=== PATIENT | male | born 1990 | race Caucasian/White ===

== ENCOUNTER 2016-06-09 09:58 | Observation (INO) | payer OTHER ==
[~2016-06-09] VITALS: Ht 172.7 cm; Wt 170.1 kg
--- NOTE | 2016-06-09 10:07 | ED GENERAL ADULT ---
History of Present Illness General Chief Complaint: General Adult Stated Complaint: "HERE FOR GALLBLADDER REMOVAL" Source: patient Exam Limitations: no limitations Vital Signs & Intake/Output Vital Signs & Intake/Output Vital Signs Date Time Temp Pulse Resp B/P Pulse O2 O2 Flow FiO2 Ox Delivery Rate 06/09 1006 98.5 89 18 135/80 98 Room Air Allergies Coded Allergies: No Known Allergies (06/09/16) Reconcile Medications Paroxetine HCl 30 MG TABLET 1 TAB PO DAILY DEPRESION (Reported) Triage Note: 26 YO MALE TO ER FOR GALLBLADDER REMOVAL. PT WAS DUE TO HAVE GALLBLADDER OUT ON WEDNESDAY BU , STATES THE PAIN WAS WORSE TODAY SO HE WENT SENT IN FOR SURGERY. 12/24 PAIN. +NAUSEA Triage Nurses Notes Reviewed? yes Onset: Gradual Duration: worse persistent since (2 days) Timing: recent history Injury Environment: home Severity: severe Severity Numbers: 8 No Modifying Factors: none HPI: Patient is a 26-year-old female with history of obesity, epigastric and right upper quadrant pain is bothering him over the past 6 years worse over the past several months. He recently saw a new surgeon who recommended he get a HIDA scan. This showed severe dysfunction of the gallbladder. He was scheduled to have his colon removed in 2 days but the pain became worse over the past 2 days. Positive nausea and dry heaving with one episode of bilious vomiting yesterday. Denies any fevers or chills. No diarrhea. He spoke with his surgeon who sent him to the ER for evaluation and cholecystectomy. Patient denying taking anything for pain prior to arrival. Pain currently 8 out of 10. He reports that the pain is in the right upper quadrant and radiates to the back. Denies any chest pain palpitations or shortness of breath. Palpation makes the pain worse nothing seems to make it better. (MARYLIN MORA) Past History Travel History Traveled to [place] past 21 day No Medical History Any Pertinent Medical History? see below for history Surgical History Surgical History: non-contributory Family History Hx Contributory? No (MARYLIN MORA) Review of Systems Review of Systems Constitutional: Reports: no symptoms. Comments Review of systems: See HPI, All other systems negative. Constitutional, no chills fever or weight loss HEENT: No visual changes no sore throat no congestion Cardiovascular: No chest pain ,palpitation Skin, no jaundice no rashes Respiratory: No dyspnea cough sputum or hemoptysis GI: no vomiting : No dysuria No hematuria Muscle skeletal: no back pain, no neck pain, Neurologic: No numbness no confusion no [place] Psych: No stress anxiety Immunology: No splenectomy or history of AIDS (MARYLIN MORA) Physical Exam Physical Exam General Appearance: no apparent distress, alert, awake, obese Comments: Obese person in no acute distress HEENT:Pupils equally round and reactive to light and accommodation. Nose is atraumatic. Neck: Normal inspection Back: Nontender, no CVA tenderness. Full range of motion Cardiovascular: Regular rate and rhythms no murmurs rubs or gallops, normal JVP Respiratory: Chest nontender. No respiratory distress.breath sounds clear to auscultation bilaterally Abdomen: Soft, obese, tender to palpation in the epigastric region, mild guarding, no rebound tenderness, nondistended, no appreciable organomegaly. Normal bowel sounds. No ascites. Reducible umbilical hernia approximately 2 cm in diameter. Extremity: No edema Neuro: Alert oriented x3 Skin: No appreciable rash on exposed skin, skin is warm and dry. Psych: Mood and affect is normal, memory and judgment is normal. Core Measures ACS in differential dx? No CVA/TIA Diagnosis: No Severe Sepsis Present: No Septic Shock Present: No (MARYLIN MORA) Progress Differential Diagnoses I considered the following diagnoses in my evaluation of the patient: Acute cholecystitis, gastritis, diverticulitis, hiatal hernia, pancreatitis Plan of Care: Orders Procedure Date/time Status EKG 06/09 1205 Active Initial ED EKG: none Comments: 06/09/2016 10:23:18 AM arrival patient is afebrile. Patient does have reproducible pain in the epigastric and right upper quadrant. According to surgeon Dr. Guo, labs are not necessary. IV fluids, IV pain medication and nausea medication administered. Patient will go to the OR around 12:30 for cholecystectomy. 06/09/2016 10:56:12 AM spoke with the surgical physician assistant case manager, she will be down to evaluate the patient prior to going to the operating room. 06/09/2016 11:18:55 AM patient resting comfortably. Patient will go to the OR within the next hour or so. Discussed with Dr. palmer and he agrees with plan. (MARYLIN MORA) Departure Departure Disposition: STILL A PATIENT Condition: Stable Clinical Impression Primary Impression: Dysfunctional gallbladder Secondary Impressions: Abdominal pain Qualifiers: Abdominal location: right upper quadrant Qualified Code: R10.11 - Right upper quadrant pain Referrals: PATIENT HAS NO PRIMARY CARE DR (PCP/Family) Departure Forms: Customer Survey General Discharge Information OR/GI Note Spoke With: MATEUS GUERRERO,MOLINA Cabrera ED Treatment Decision: COLE ANDREW requires urgent operative management or an emergent procedure that cannot be performed in the Emergency Room setting. Transport To: [facility] (MARYLIN MORA) PA/TRACK REPAIRER HELPER Co-Sign Statement Statement: ED Attending supervision documentation- [] I saw and evaluated the patient. I have also reviewed all the pertinent lab results and diagnostic results. I agree with the findings and the plan of care as documented in the PA's/TRACK REPAIRER HELPER's documentation. x I have reviewed the ED Record and agree with the PA's/TRACK REPAIRER HELPER's documentation. [] Additions or exceptions (if any) to the PAs/TRACK REPAIRER HELPER's note and plan are summarized below: [] (ART GUERRERO,COLE) Critical Care Note Critical Care Note Critical Care Time: non-applicable (MARYLIN MORA)
--- NOTE | 2016-06-09 10:20 | NUR ---
PT TO ER ROOM 4. IV EST. NORMAL SALINE INFUSING PER ORDER AT THIS TIME. PA AT BEDSIDE FOR EVAL.
--- NOTE | 2016-06-09 10:43 | NUR ---
PT MEDICATED WITH MORPHINE AND ZOFRAN PER ORDER AT THIS TIME
[2016-06-09] MEDS ORDERED: PAROXETINE HCL30 M1 PO (11:15)
--- NOTE | 2016-06-09 11:45 | History & Physical Pre-Op ---
General Information and HPI MD Statement: I have seen and personally examined COLE ANDREW and documented this H&P. The patient is a 26 year old M who presented with a patient stated chief complaint of [abdominal pain]. Source of Information: patient Exam Limitations: no limitations History of Present Illness: This 26 year old white male with morbid obesity presents with recurrent biliary colic, for which he was planning an elective laparoscopic cholecystectomy later this week by , but had a severe attack last night bringing him to the ED. He has had some associated nausea, but no vomiting. Denies dizziness. No shortness of breath. No chest pains. Outpatient studies done by 's office currently unavailable for review, but will be brought in by today. Allergies/Medications Allergies: Coded Allergies: No Known Allergies (06/09/16) Home Med list Paroxetine HCl 30 MG TABLET 1 TAB PO DAILY DEPRESION (Reported) Past History Medical History Neurological: NONE EENT: NONE Cardiovascular: NONE Respiratory: NONE Gastrointestinal: NONE Hepatic: NONE Renal: NONE Musculoskeletal: NONE Psychiatric: anxiety Endocrine: obesity Blood Disorders: NONE Cancer(s): NONE BLENDER/BRAZE APPLICATOR/Reproductive: NONE Surgical History Pertinent Surgical History: non-contributory Past Family/Social History Family History Relations & Conditions if any Relation not specified for: FHx: gallstones Psychosocial History Smoking Status: Former Smoker ETOH Use: occasional use Review of Systems Review of Systems: admits: abdominal pain (right upper quadrant), nausea denies: dizziness, shortness of breath, chest pains, dysuria Exam & Diagnostic Data Last 24 Hrs of Vital Signs/I&O Vital Signs Date Time Temp Pulse Resp B/P Pulse O2 O2 Flow FiO2 Ox Delivery Rate 06/09 1006 98.5 89 18 135/80 98 Room Air Intake & Output 06/09 1600 06/09 0800 06/09 0000 Intake Total Output Total Balance Patient 375 lb Weight Physical Exam: General - comfortable. no acute distress. Skin - warm, dry, and smooth. no rashes. Lungs - clear bilaterally. no w/r/r. Cardiac - s1s2. reg. Abdomen - obese. soft. right upper quadrant tenderness appreciated. no umbilical hernia appreciated, but he has umbilical tenderness. no surgical scars visualized. Extremities - warm bilaterally. no c/c/e. calves soft and nontender b/l. Neuro - speech smooth and coordinated. nonfocal. Assessment/Plan Assessment/Plan: This 26 year old white male with hx morbid obesity and gallstones presents with recurrent biliary colic consented for lap mac today by pain medication as needed possibly d/c home today hep sc - dvt ppx if he stays overnight obtain pre-op records from 's office will d/w As Ranked By This Provider Problem List: 1. Abdominal pain
--- NOTE | 2016-06-09 12:22 | NUR ---
PER OP SCURB GIVEN TO PT AND PT VERBZLIED UNDERTSANDING OF SCRUB. EKG IN PROGRESS AT THIS TIME
--- NOTE | 2016-06-09 12:48 | NUR ---
PER OR THEY WILL BE SENDING FOR PT IN APPROX 30-45 MINUTES. PT AWARE. PT REMAINS COMOFRTBLE ON STRETCHER AT THIS TIME.
--- NOTE | 2016-06-09 13:13 | NUR ---
TRANSPORT HERE TO TAKE PT TO OR AT THIS TIME. PT STABLE FOR TRANSPORT TO OR, PRE OP SCURB HAS BEEN COMPLETED.
--- NOTE | 2016-06-09 15:50 | Operative Report ---
Operative/Inv Procedure Report Surgery Date: 06/09/16 Name of Procedure: Laparoscopic cholecystectomy, umbilical hernia repair Pre-Operative Diagnosis: Biliary dyskinesia, umbilical hernia Post-Operative Diagnosis: Same Estimated Blood Loss: less than 50ml Surgeon/Engine Mechanic: George Patel APRN Anesthesia: general endotracheal tube, block IV Fluids: LR Urine Output: n/a Drains: none Specimens: Gallbladder Complications: None Condition: Stable Operative Indication: Patient is a 26-year-old male who has had multiple emergency room admissions including [facility], [facility], was seen in my office with epigastric right upper quadrant pain radiating to his back. Symptoms were consistent with gallbladder disease although his ultrasound and CT scan did not show stones. I sent the patient for HIDA scan which was positive showing only a 19% ejection fraction and cholecystokinin. We are going to plan an elective cholecystectomy although the patient called this morning with increased pain last night and vomiting bilious material with therefore brought him to the emergency room and placed him on the add-on schedule. Given the patient's obesity and BMI 61 he is at somewhat higher risk of complication which we discussed including but not limited to bleeding infection injury to bile ducts or bowel DVT and pulmonary embolus. Patient consented the surgery Operative/Procedure Note Note: After informed consent proper identification the patient was taken to the operating room and placed on the operating room table in supine position Venodyne stockings were applied and underwent a general endotracheal anesthetic the abdomen was prepped and draped in normal sterile fashion after anesthesia placed a tap block the patient also preoperatively was noticed to have a small umbilical hernia. We can produce a small amount of fat just at the level of the umbilicus. He had reported that at times that a protrusion became larger and then gets smaller consistent with a hernia. We anesthetized the area around the umbilicus with Percent Marcaine and with a 15 blade made a infraumbilical incision through the skin and dermis. Using a finger placed in the subcutaneous tissues I could palpate the fat coming through approximately a 1 cm defect just adjacent to the umbilical stalk we opened up a small sac and under direct visualization placed a finger within the abdominal cavity we placed a blunt port cannula into the defect and insufflated with 14 mm CO2 pressure. The cannula was placed directly through the umbilical hernia defect. We had good visualization now. The patient had a very large liver and a very large fatty omentum patient was placed in deep reverse Trendelenburg. We placed additional trochars 5 mm trocar in the upper midline below the xiphoid and 25 mm trochars in the right subcostal margin and a 5 mm trocar in the left subcostal margin in which we used a peanut dissector to retract the omentum the gallbladder was very distended but the wall was thin and blue. We could not retract it without decompressing it we opened it with a cautery and then using a suction metallurgical specialist sucked out clear yellow bile which appeared normal. We grasped the fundus and pushed it up towards the head we could not push it over the liver edge because the liver was too large although with retracting the omentum now we had excellent visualization of the infundibulum. Using a combination of a hook cautery and blunt dissection with a [place] dissector we dissected out the cystic duct and cystic artery which we saw clearly we used a 5 mm clip warehouse forklift operator and placed 3 clips proximally on the duct and 2 clips proximally on the artery and one 5 mm clip distally on each of the duct and artery and divided the duct and artery we then dissected the gallbladder out of the liver bed without difficulty as there was a very nice tissue plane were placed the gallbladder in the Endo Catch bag and pulled it out through the infraumbilical trocar site we replaced the trocar and inspected the abdomen we suction irrigated the right upper quadrant we then removed all trochars there is no active bleeding we closed the umbilical fascial defect with a figure of 8-0 Prolene suture therefore with repairing the umbilical hernia. We closed all the skin incisions with 4-0 Monocryl subcuticular stitches we placed Steri-Strips and dry sterile dressings patient tolerated the procedure without complications Findings: Distended but thin walled gallbladder Large fatty liver Discharge Disposition: PACU
--- NOTE | 2016-06-09 20:22 | PN- General Surgery ---
Subjective Subjective: Post Op Note s/p laparoscopic cholecystectomy pain controlled. no c/o. Patient has been dropping O2 sats to 88-90% O2 on RA and is staying the night for observation. He denies chest pain or shortness of breath. States he is hungry. Objective Vital Signs and I&Os Vital Signs Date Time Temp Pulse Resp B/P Pulse O2 O2 Flow FiO2 Ox Delivery Rate 06/09 1311 98.6 76 18 121/58 98 Room Air 06/09 1006 98.5 89 18 135/80 98 Room Air Intake & Output 06/09 1600 06/09 0800 06/09 0000 06/08 1600 06/08 0800 06/08 0000 Intake Total Output Total Balance Patient 375 lb Weight Physical Exam: Gen: NAD, comfortable, A&Ox3 Chest: CTAB. Tachycardic, regular rhythm Abd: Soft, non distended. Appropriately TTP. Dressings c/d/i Ext: No calve TTP/Swelling. N/V intact BLE. Current Medications: Current Medications Sig/Tasha Start time Last Medication Dose Route Stop Time Status Admin Morphine Sulfate 0 .STK-MED ONE 06/09 1041 DC .ROUTE Morphine Sulfate 4 MG ONCE ONE 06/09 1030 DC 06/09 IV 06/09 1031 1043 Ondansetron HCl 0 .STK-MED ONE 06/09 1041 DC .ROUTE Ondansetron HCl 4 MG ONCE ONE 06/09 1030 DC 06/09 IV 06/09 1031 1043 Paroxetine HCl 30 MG DAILY 06/10 1000 UNVr PO Sodium Chloride 1,000 ML ONCE ONE 06/09 1015 DC 06/09 IV 06/09 1654 1019 Assessment/Plan Assessment/Plan 26yo M POD#0 s/p lap mac with decreased O2 sats and mildly tachycardic. - admit for 23hr obs - pain control - PRN zofran - advance diet as tolerated - IVF until tolerating PO - I/O's - OOB as desired - CPAP - Monitor O2, wean as permitted Core Measures/Miscellaneous Venous Thromboembolism VTE Risk Factors: Age > 40, Obesity, Surgery VTE Contraindications: No Contraindications VTE Prophylaxis Ordered Inpt Mech & Pharm VTE Diagnosis: No Beta Fallon Is Beta Fallon a Home Med? No Antibiotics Is Patient on Antibiotics? No
[2016-06-09 20:44] VITALS: BP 126/72
--- NOTE | 2016-06-09 20:47 | NUR ---
PT ARRIVED AT 2030 FROM PACU VIA WC. A/OX3, SPO2 95, 2L NC, IVF PER ORDER, ALPS PER ORDER, PAIN 6/10 (SEE EMAR), BP 126/72, T 97.9, P 100. 4 ABD BAID AIDS C/D/I, 1 STERI STRIP ABD WITH SCAN AMOUNT OF DRY BLOOD. WILL CONTINUE TO MONITOR
--- NOTE | 2016-06-09 22:29 | Admission Core Measures ---
Admission Meds I reviewed the following Meds: Current Medications Sig/Tasha Start time Last Medication Dose Stop Time Status Admin Morphine Sulfate 2 MG Q2P PRN 06/09 2044 AC (Morphine) Ondansetron HCl 4 MG Q6P PRN 06/09 2044 AC (Zofran) Oxycodone/ 1 TAB Q4P PRN 06/09 2044 AC Acetaminophen (Percocet) Paroxetine HCl 30 MG DAILY 06/10 1000 AC (Paxil) Acute Coronary Syndrome Inclusion Criteria ACS Diagnosis No Inpatient Core Measures LDL Reminder: If No, please order W/I first 24hr of stay Congestive Heart Failure Inclusion Criteria CHF Diagnosis No Cerebrovascular accident Inclusion Criteria CVA/TIA Diagnosis No Inpatient Core Measures Bedside Swallow Eval Reminder: If BSE failed, place ST order Antithrombotic Reminder: Order Antithrombotic Medication by end of day 2 Antithrombotic Reminder: Document Reason Antithrombotic Not ordered by end of day 2 AFIB/Flutter Reminder: If Present, add to problem list AFIB/Flutter Reminder: Order Anticoag Medication for pts with AFIB/Flutter Atherosclerosis Reminder: If Present, add to problem list LDL Reminder: If No, please order W/I first 24hr of stay PT Order Reminder: If No, please order Venous thromboembolism Inpatient Core Measures VTE Risk Factors: Obesity, Surgery VTE Prophylaxis Ordered Inpt Mech & Pharm No Mech VTE prophylaxis d/t No contraindications No VTE Pharm Prophylaxis d/t No contraindications Inclusion Criteria - Per Current guidelines, there needs to be overlap - treatment for the first 5 days of Warfarin therapy. - Parenteral Anticoagulation (IV or SC) needs to be - given along with Warfarin therapy. VTE Diagnosis No VTE Type NONE VTE Confirmed by (Test) NONE Problem List As ranked by this Provider includes Assessment & Plan 1. S/P laparoscopic cholecystectomy HOME MEDS Home Med List Paroxetine HCl 30 MG TABLET 1 TAB PO DAILY DEPRESION (Reported)
[2016-06-09 22:36] VITALS: BP 144/82
[2016-06-10 01:33] VITALS: BP 134/80
--- NOTE | 2016-06-10 06:19 | PN- General Surgery ---
Subjective Subjective: No complaints. Pain controlled. Tolerating clears. Walking well. No dizziness. No shortness of breath. No chest pains. Voiding well. Objective Vital Signs and I&Os Vital Signs Date Time Temp Pulse Resp B/P Pulse O2 O2 Flow FiO2 Ox Delivery Rate 06/10 0133 96.6 102 20 134/80 96 Nasal 3.0L Cannula 06/10 0000 98 Nasal 2.0L Cannula 06/096 98.4 106 22 144/82 98 Nasal 2.0L Cannula 06/09 2044 97.9 100 18 126/72 95 Nasal 2.0L Cannula 06/09 1311 98.6 76 18 121/58 98 Room Air 06/09 1006 98.5 89 18 135/80 98 Room Air Intake & Output 06/10 0800 06/10 0000 06/09 1600 06/09 0800 06/09 0000 06/08 1600 Intake Total 630 Output Total Balance 630 Intake, IV 150 Intake, Oral 480 Patient 375 lb 375 lb Weight Physical Exam: General - alert & oriented x 3. comfortable. no acute distress. Lungs - clear bilaterally. no w/r/r. Cardiac - s1s2. reg. Abdomen - soft. dressings stained but intact. no drains. luda-incisional tenderness, as expected. Extremities - warm bilaterally. no c/c/e. calves soft and nontender b/l. Assessment/Plan Assessment/Plan 26 year old white male POD#1 s/p lap mac, post-op hypoxia for which he stayed overnight, known pmh sleep apnea and morbid obesity pain controlled tolerating clears. d/c iv fluids ambulating well hep sc - dvt ppx wean off o2 d/c to home today will d/w Core Measures/Miscellaneous Venous Thromboembolism VTE Risk Factors: Age > 40, Obesity, Surgery VTE Contraindications: No Contraindications VTE Prophylaxis Ordered Inpt Mech & Pharm VTE Diagnosis: No VTE Type: NONE VTE Confirmed by (Test): NONE Beta Fallon Is Beta Fallon a Home Med? No Antibiotics Is Patient on Antibiotics? No
[2016-06-10] MEDS ORDERED: COLACE100 M1 PO (06:21)
[2016-06-10] MEDS ORDERED: PERCOCET 5-3251 EACH PO (06:21)
--- NOTE | 2016-06-10 06:24 | Patient Discharge Instructions ---
Discharge Instructions General Discharge Information You were seen/treated for: Biliary dyskinesia, umbilical hernia You had these procedures: Surgery Date: 06/09/16 Name of Procedure: Laparoscopic cholecystectomy, umbilical hernia repair Watch for these problems: fever>101.3, increased pain, redness/swelling/drainage No bath, but you may shower: Yes Other wound care: ok to remove outer dressings. leave white steri strips in place. ok to shower. keep incisions clean & dry. Diet Continue normal diet: Yes Recommended Diet: Regular Activity Full Activity/No Limits: No Activity Self Limited: Yes Pounds, do NOT lift more than: 10 Other activity limits: no heavy lifting >10 lbs for 2-4 weeks Additional ACTIVITY Info: no strenuous activity. Acute Coronary Syndrome Inclusion Criteria At DC or during hospital stay patient has or had the following: ACS DIAGNOSIS No Discharge Core Measures Meds if any: Prescribed or Continued at Discharge Meds if any: NOT Prescribed or Continued at Discharge Congestive Heart Failure Inclusion Criteria At DC or during hospital stay patient has or had the following: CHF DIAGNOSIS No Discharge Core Measures Meds if any: Prescribed or Continued at Discharge Meds if any: NOT Prescribed or Continued at Discharge Cerebrovascular accident Inclusion Criteria At DC or during hospital stay patient has or had the following: CVA/TIA Diagnosis No Discharge Core Measures Meds if any: Prescribed or Continued at Discharge Meds if any: NOT Prescribed or Continued at Discharge Venous thromboembolism Inclusion Criteria VTE Diagnosis No VTE Type NONE VTE Confirmed by (Test) NONE Discharge Core Measures - Per Current guidelines, there needs to be overlap - treatment for the first 5 days of Warfarin therapy. - If discharged on Warfarin prior to 5 days of - overlap therapy, the patient will need to be - assessed for post discharge needs including - *Post discharge parental anticoagulation - *Warfarin and/or parental anticoagulation education - *Follow up date to check INR post discharge At least 5 days overlap therapy as Inpatient No Meds if any: Prescribed or Continued at Discharge Note: Overlap Therapy is Warfarin and Anticoagulant Meds if any: NOT Prescribed or Continued at Discharge
--- NOTE | 2016-06-10 06:26 | Surg Short-stay <48hrs Dis Sum ---
See Addendum Visit Information Visit Dates Admission Date: 06/09/16 Discharge Date: 07/11/16 Surgical Short Stay DC Summary Admission Diagnosis: Biliary dyskinesia, umbilical hernia Final Diagnosis: Biliary dyskinesia, umbilical hernia Procedure(s): Surgery Date: 06/09/16 Name of Procedure: Laparoscopic cholecystectomy, umbilical hernia repair Summary/Significant Findings: Presented to the ED with acute exacerbation of biliary colic related to known dyskinesia. Taken to the OR 06/09 for lap mac and umbilical hernia repair. Post -operatively stayed overnight due to slight hypoxia, requiring 3L nasal cannula overnight. This was expected given his morbid obesity status, history of sleep apnea, and post-op status. Otherwise uneventful hospitalization. Off oxygen post -op day#1 morning with o2 sats 94% on room air. Pain controlled with percocet. Tolerating food. Stable for discharge. To return in several months for elective sleeve gastrectomy with . Condition at Discharge: stable Discharge Disposition: home or self care Discharge instructions provided to patient/family: Yes Post discharge follow-up plan: call to schedule follow up appointment for one week
[2016-06-10 08:21] VITALS: BP 132/76
== END 2016-06-10 10:31 ==
LOC: CANRESERV → ENRESERVDT → ENRESERVTM → ERH 09:58 → PACUH 20:09 → ENPENDDIS 20:09 → 2NB 20:21
PROVIDERS: ADMIT Surgery
DX: K81.1 Chronic cholecystitis (principal); K82.8 Other specified diseases of gallbladder; K42.9 Umbilical hernia without obstruction or gangrene; K76.0 Fatty (change of) liver, not elsewhere classified; E66.9 Obesity, unspecified; Z68.44 Body mass index [BMI] 60.0-69.9, adult
CPT/HCPCS: 1328; 1425; 1530; 1748; 6040; 88304; 93005; 93010; 96374; 96375; G0378; J0131; J0690; J1100; J1170; J1644; J2250; J2405; J3010